=== PATIENT | male | born 1940 | race African-American/Black ===

== ENCOUNTER 2018-12-19 09:28 | Emergency (ER) | payer MEDICARE ==
[~2018-12-19] VITALS: Ht 167.6 cm; Wt 79.4 kg
[~2018-12-19 09:28] MED LIST: AMLO10TA8 PO; ASPI-482 PO; ATOR20TA58 PO; HYDR-2145 PO; LISI-334 PO; POTA25TA4 PO
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
[2018-12-19] MEDS: oxyCODONE/APAP 5/325 1 TAB TABLET PO ONE (10:35)
--- NOTE | 2018-12-19 10:44 | RAD ---
Indications: Injury and pain. AP view of the pelvis and two-view study of the right hip: No acute fracture or dislocation or lytic process of the right hip joint area is seen. The hip joints are symmetric. No acute fracture or diastases or lytic process of the pelvic bones is seen. IMPRESSION: No acute fracture. Three-view study lumbar spine: No compression fracture of the lumbar spine is evident. No discitis or lytic process or anterolisthesis is evident. There is degenerative disc space narrowing and endplate spurring throughout the lumbar spine. Mild dextroscoliosis is seen. Bilateral radiopaque renal stones are seen. IMPRESSION: No acute compression fracture of the lumbar spine. Degenerative lumbar spondylosis. Bilateral radiopaque renal stones. Electronically signed by: Rajendra Harrington MD (12/19/2018 10:41 AM) [id number]
[2018-12-19] MEDS ORDERED: ACET-704 PO (11:08)
[2018-12-19 11:39] VITALS: BP 154/69
== END 2018-12-19 11:45 | disposition home or self-care (01) ==
LOC: ER 09:28
DX: S70.01XA Contusion of right hip, initial encounter (principal); K21.9 Gastro-esophageal reflux disease without esophagitis; E78.00 Pure hypercholesterolemia, unspecified; I11.9 Hypertensive heart disease without heart failure; I25.10 Atherosclerotic heart disease of native coronary artery without angina pectoris; F17.210 Nicotine dependence, cigarettes, uncomplicated; W17.89XA Other fall from one level to another, initial encounter; Y93.89 Activity, other specified; Y92.89 Other specified places as the place of occurrence of the external cause; Y99.8 Other external cause status; Z88.0 Allergy status to penicillin
CPT/HCPCS: 72100; 73502; 99284